=== PATIENT | female | born 1965 | race African-American/Black ===

== ENCOUNTER 2024-07-03 20:48 | Emergency (ER) | payer MEDICAID ==
[~2024-07-03] VITALS: Ht 175.3 cm; Wt 95.0 kg
[2024-07-03 21:01] VITALS: O2SAT 97
[2024-07-03 22:30] VITALS: BP 153/89; PULSE 75; RESP 16; TEMP 36.61404; O2SAT 100
== END 2024-07-03 23:34 | disposition home or self-care (01) ==
LOC: ER 20:48
DX: M79.601 Pain in right arm (principal); E11.9 Type 2 diabetes mellitus without complications; I51.9 Heart disease, unspecified; Z98.890 Other specified postprocedural states
CPT/HCPCS: 73060; 73070; 73090; 73110; 99284